=== PATIENT | male | born 2000 | race Caucasian/White ===

== ENCOUNTER 2025-04-24 11:31 | Observation (INO) ==
--- NOTE | 2025-04-24 11:40 | ED.PDOC ---
General [facility] ED Provider: Dr. GABRIEL PULLIAM MD Chief Complaint: Non-specific Complaint Stated Complaint: Patient is a 24-year-old male that reported to the emergency department for low blood pressure. Patient stated that he checked his blood pressure this morning with a home blood pressure cuff and it showed 90/60. Patient stated that he came to the emergency department due to the low blood pressure. In the emergency department patient's blood pressure was 114/78. Patient denied any current symptoms. Patient denied taking any medications this morning. Patient stated that he had been on blood pressure medicines previously but they were discontinued as they lowered the patient's blood pressure. Patient stated that he was on fluoxetine and buspirone for anxiety which his last doses were last night. Patient's heart rate was slightly elevated at 102 bpm. Patient's GCS was 15. Time Seen by Provider: 04/24/25 11:33 Mode of Arrival: Walk-In Information Source: Patient Exam Limitations: No limitations Primary Care Provider: LEE VILLARREAL Nursing and Triage Documentation Reviewed and Agree: Yes Opioid Naive vs. Tolerant What is Opioid Naive?: *Opioid Naive implies the patient is not already taking opioids or not chronically receiving opioids on a daily basis. *PRN dosing is not "usually" associated with tolerance. *Patients are at higher risk of over-sedation and aspiration. What is Opioid Tolerant?: *Opioid Tolerance implies less than the expected response to an opioid. *Acquired tolerance is defined by the patient taking 60mg of oral morphine daily (or equianalgesic dose of another opioid) for 1 week or more. *Often associated with chronic pain. *May take more than usual dose to achieve desired pain control. Review of Systems Review Of Systems Constitutional: Reports No symptoms Eyes: Reports No symptoms Ears, Nose, Mouth, Throat: Reports No symptoms Respiratory: Reports No symptoms Cardiac: Reports No symptoms GI: Reports No symptoms : Reports No symptoms Musculoskeletal: Reports No symptoms Skin: Reports No symptoms Neurological: Reports No symptoms Endocrine: Reports No symptoms Hematologic/Lymphatic: Reports No symptoms All Other Systems: Reviewed and Negative Physical Exam Physical Exam Appearance: Reports Well-nourished and Obese Ill-appearing: None Pain Distress: None Eyes: Reports [place], EOMI and Conjunctiva clear ENT: Reports Nose normal and Oropharynx normal Neck: Supple Respiratory: Reports Airway patent, Breath sounds clear, Breath sounds equal and Respirations nonlabored Cardiovascular: Reports RRR, Pulses normal, No rub and No murmur GI/: Reports Soft, Nontender and Bowel sounds normal Musculoskeletal: Reports Normal strength, ROM intact, No edema and No calf tenderness Skin: Reports Warm, Dry and Normal color Neurological: Reports Sensation intact, Motor intact, Alert and Oriented Psychiatric: Reports Affect appropriate and Mood appropriate Physician Progress Note Physician Progress Note: Patient is a 24-year-old male that reported to the emergency department for low blood pressure. Patient stated that he checked his blood pressure this morning with a home blood pressure cuff and it showed 90/60. Patient stated that he came to the emergency department due to the low blood pressure. In the emergency department patient's blood pressure was 114/78. Patient denied any current symptoms. Patient denied taking any medications this morning. Patient stated that he had been on blood pressure medicines previously but they were discontinued as they lowered the patient's blood pressure. Patient stated that he was on fluoxetine and buspirone for anxiety which his last doses were last night. Patient's heart rate was slightly elevated at 102 bpm. Patient's GCS was 15. - Will order an EKG, troponin, and baseline labs. - Will order orthostatic vital signs. - EKG shows normal sinus rhythm with normal axis. Ventricular rate is 95 bpm. No acute STEMI noted. EKG interpreted by ER physician. - Patient has an KELL on CMP. Will give IV fluids. - Spoke to hospitalist at 1245 who agreed to accept the patient at [facility] for KELL. Patient's vital signs are stable at time of observational admission. Course Course 04/24/25 11:45 04/24/25 11:45 Orders, Labs, Meds: Lab Review 04/24/25 11:45 WBC 7.50 RBC 3.63 L Hgb 11.1 L Hct 34.5 L MCV 95.0 H MCH 30.6 MCHC 32.2 RDW Coeff of Jamel 12.2 Plt Count 283 Immature Gran % (Auto) 0.3 Neut % (Auto) 53.0 Lymph % (Auto) 36.0 [place] % (Auto) 6.9 Eos % (Auto) 3.3 Baso % (Auto) 0.5 Neut # (Auto) 4.0 Lymph # (Auto) 2.7 [place] # (Auto) 0.5 Eos # (Auto) 0.3 Baso # (Auto) 0.0 Immature Gran # (Auto) 0.0 Sodium 139.5 Potassium 4.49 Chloride 103.7 Carbon Dioxide 24.1 Anion Gap 16.19 BUN 42.5 H Creatinine 1.39 H Estimated GFR (MDRD) 63.00 BUN/Creatinine Ratio 30.57 Glucose 124.6 H Calcium 9.48 Total Bilirubin 0.46 AST 46.4 ALT 34.5 Alkaline Phosphatase 45.9 Troponin I < 0.012 Total Protein 7.46 Albumin 4.48 Globulin 2.98 Albumin/Globulin Ratio 1.50 Orders Category Date Time Status EKG-(ED & IP/OBS ONLY) Stat CARDIO 04/24/25 11:34 Ordered Orthostatic Vital Signs [ED ORTHOSTATIC VITAL SIGNS] . EMERGENCY 04/24/25 11:50 Active ONCE CBC W/ AUTO DIFF Stat LAB 04/24/25 11:45 Completed CMP [COMPREHENSIVE METABOLIC PANEL] Stat LAB 04/24/25 11:45 Completed TROPONIN I Stat LAB 04/24/25 11:45 Completed Sodium Chloride 0.9% [Sodium Chloride] 1,000 ml Meds 04/24/25 12:35 Active IV BOLUS Medications Generic Name Dose Route Start Last Admin Trade Name Freq PRN Reason Stop Dose Admin Sodium Chloride 1,000 mls @ 1,000 mls/hr 04/24/25 12:35 Sodium Chloride IV 04/24/25 13:34 BOLUS ONE Vital Signs: Temp Pulse Resp BP Pulse Ox 04/24/25 12:22 110 H 100/57 L 04/24/25 12:21 98 100/62 04/24/25 12:21 93 99/55 L 04/24/25 11:36 97.8 F 108 H 18 114/67 97 SEUN Risk Score SEUN Risk Score: Risk Score Odds of by 30D 0 0.1 (0.1-0.2) 1 0.3 (0.2-0.3) 2 0.4 (0.3-0.5) 3 0.7 (0.6-0.9) 4 1.2 (1.0-1.5) 5 2.2 (1.9-2.6) 6 3.0 (2.5-3.6) 7 4.8 (3.8-6.1) Discharge Plan Discharge Patient Disposition: PLACED OBSERVATION Discharge Problem: KELL (acute kidney injury) Did you review [place] HEAD MACHINIST for ALL controlled substances?: Not Applicable ED Provider: GABRIEL PULLIAM Condition: Stable
[2025-04-24 11:58] LABS: IMMATURE GRANULOCYTE # (AUTO) 0.0 (0.0-1.0); IMMATURE GRANULOCYTE % (AUTO) 0.3 % (0.0-5.0); RDW COEFFICIENT OF VARIATION 12.2 % (11.6-14.8)
[2025-04-24 12:11] LABS: CREATININE 1.39 mg/dL (0.60-1.10)
[2025-04-24] MEDS ORDERED: TYLENOL PO PRN (13:04)
[2025-04-24] MEDS ORDERED: ZOFRAN SDV IVP PRN (13:04)
--- NOTE | 2025-04-24 13:04 | PCM ---
Date of Service Date Seen by Provider: 04/24/25 Time Seen by Provider: 13:00 Admit Day/Time Admission Date: 04/24/25 Admission Time: 12:52 Reason for Admission Chief Complaint: KELL Hospital Provider Hospital Provider: Nely Mccray [facility]-C, [facility] Primary Care Physician Primary Care Physician: LEE VILLARREAL History of Present Illness History of Present Illness: Patient is a 24-year-old male with past medical history of diabetes and hypertension who presented to the ER dizziness. He states that he was admitted to [facility] this past week with a kidney injury and was discharged yester day. He states that his medications were changed. He checked his blood pressure at home and it was low. Upon arrival to the ER his systolic was in the 90s. He was noted to have a creatinine of 1.3 with the last 1 in our system being 0.9. He was given fluids. Will admit to [facility]. After discussing with the patient, his grandma, and reviewing records from [facility] it was found that his creatinine was 8.6 on Monday of this week. He had presented to get a stress test but when they placed the IV he felt like he was going to pass out and was noted to be hypotensive so he was directed to the ER. He was admitted from 04/21-04/23. KELL was felt to be due to his Rybelsus. He was given fluids and creatinine improved to 1.9 upon discharge. He also had a low magnesium of 1 point level of 1.6. Since he has had some dizziness, low blood pressure, and not quite to his entire baseline of creatinine patient still wishes to stay overnight for fluids. Case Discussed With Case Discussed With: Patient's case was discussed with the ER Physicians, Dr. Vega. [facility] Medical History (Updated 04/24/25 @ 18:24 by PIYUSH DIXON, CHRISTIAN) Anxiety F41.9 - Anxiety disorder, unspecified (ICD-10) Diabetes E11.9 - Type 2 diabetes mellitus without complications (ICD-10) Family History (Updated 04/24/25 @ 18:23 by PIYUSH DIXON, CHRISTIAN) Mother Mini stroke Hypertension MATERNAL GRANDMOTHER Hypertension Diabetes MATERNAL GRANDMOTHER AMI (acute myocardial infarction) SISTER Scoliosis Allergies Allergies Allergy/AdvReac Type Severity Reaction Status Date / Time No Known Allergies Allergy Verified 04/24/25 11:36 Current Medications Home Medications Acetaminophen (Acetaminophen 325 Mg Tablet) 650 mg PO Q4H PRN PRN Reason: Mild Pain Buspirone HCl (Buspirone Hcl 10 Mg Tablet) 10 mg PO 2XD RUBEN Empagliflozin (Empagliflozin 10 Mg Tablet) [address] [facility] Fluoxetine HCl (Fluoxetine Hcl 20 Mg Capsule) [address] [facility] Lactated Ringer's (Lactated Ringers) 1,000 mls @ 125 mls/hr IV .Q8H RUBEN Last Admin: 04/24/25 16:05 Dose: 125 mls/hr Ondansetron HCl (Ondansetron Hcl/Pf 4 Mg/2 Ml Sdv) 4 mg IVP Q6H PRN PRN Reason: Nausea / Vomiting lisinopril 20 mg tablet 20 mg PO QPM 10/30/24 [History Confirmed 04/24/25] lisinopril 20 mg-hydrochlorothiazide 12.5 mg tablet 1 tab PO DAILY 10/30/24 [History Confirmed 04/24/25] metoprolol tartrate 25 mg tablet 25 mg PO BID PRN fast heart rate #30 tabs 10/30/24 [Rx Confirmed 04/24/25] semaglutide 14 mg tablet (Rybelsus) 14 mg PO QAM 10/30/24 [History Confirmed 04/24/25] sertraline 50 mg tablet 50 mg PO DAILY 03/18/25 [History Confirmed 03/18/25] buspirone 10 mg tablet 10 mg PO 2XD 04/24/25 [History Confirmed 04/24/25] empagliflozin 10 mg tablet (Jardiance) 10 mg PO DAILY 04/24/25 [History Confirmed 04/24/25] fluoxetine 20 mg capsule 20 mg PO QAM 04/24/25 [History Confirmed 04/24/25] Opioid Naive vs. Tolerant Does Patient Take Opioids?: No Is Patient Opioid Naive?: Yes What is Opioid Naive?: *Opioid Naive implies the patient is not already taking opioids or not chronically receiving opioids on a daily basis. *PRN dosing is not "usually" associated with tolerance. *Patients are at higher risk of over-sedation and aspiration. Is Patient Opioid Tolerant?: No What is Opioid Tolerant?: *Opioid Tolerance implies less than the expected response to an opioid. *Acquired tolerance is defined by the patient taking 60mg of oral morphine daily (or equianalgesic dose of another opioid) for 1 week or more. *Often associated with chronic pain. *May take more than usual dose to achieve desired pain control. Review of Systems Constitutional: Denies Fever Head: Reports Normocephalic and Atraumatic Cardiovascular: Denies Chest pain or Edema Respiratory: Denies Cough or Shortness of air Gastrointestinal: Denies Nausea, Vomiting, Diarrhea, Abdominal pain or Melena Genitourinary: Denies Dysuria or Hematuria Neurological: Reports Dizziness Physical examination Most Recent Vital Signs: Most Recent Vital Signs Temperature 97.8 F 04/24/25 11:36 Temperature Source Temporal Artery Scan 04/24/25 11:36 Pulse Rate 110 H 04/24/25 12:22 Respiratory Rate 18 04/24/25 11:36 Blood Pressure 100/57 L 04/24/25 12:22 Blood Pressure Location Left Arm 04/24/25 12:22 Blood Pressure Position Standing 04/24/25 12:22 O2 Sat by Pulse Oximetry 97 04/24/25 11:36 Height 5 ft 9 in 04/24/25 11:36 Weight 147.7 kg 04/24/25 11:36 Appearance: Positive No Apparent Distress and Alert and Oriented x3 Skin: Positive [place], Warm, Good Turgor and Good Color HEENT: Positive Normocephalic and Atraumatic Neck: Positive Supple and Midline Trachea Chest/Lungs: Positive Clear to Auscultation Bilaterally; Negative Rales, Rhonci or Wheezes Heart: Positive RRR GI/: Positive Soft, Nontender, Bowel Sounds Normal and No Distention Neurological: Positive Cranial Nerves Intact, Alert, Oriented and Muscle Strength 5/5 in Upper and Lower Extremities Bilaterally Psychiatric: Positive Oriented x4, Appropriate Mood, Appropriate Affect and Intact Memory Labs This Visit Labs This Visit: Labs This Visit 04/24/25 11:45 WBC 7.50 RBC 3.63 L Hgb 11.1 L Hct 34.5 L MCV 95.0 H MCH 30.6 MCHC 32.2 RDW Coeff of Jamel 12.2 Plt Count 283 Immature Gran % (Auto) 0.3 Neut % (Auto) 53.0 Lymph % (Auto) 36.0 [place] % (Auto) 6.9 Eos % (Auto) 3.3 Baso % (Auto) 0.5 Neut # (Auto) 4.0 Lymph # (Auto) 2.7 [place] # (Auto) 0.5 Eos # (Auto) 0.3 Baso # (Auto) 0.0 Immature Gran # (Auto) 0.0 Sodium 139.5 Potassium 4.49 Chloride 103.7 Carbon Dioxide 24.1 Anion Gap 16.19 BUN 42.5 H Creatinine 1.39 H Estimated GFR (MDRD) 63.00 BUN/Creatinine Ratio 30.57 Glucose 124.6 H Calcium 9.48 Total Bilirubin 0.46 AST 46.4 ALT 34.5 Alkaline Phosphatase 45.9 Troponin I < 0.012 Total Protein 7.46 Albumin 4.48 Globulin 2.98 Albumin/Globulin Ratio 1.50 Review Statement Review Statement: I have independently reviewed and interpreted the labs/EKGs/imaging that were ordered by the ER provider. I have reviewed all outside records that are available currently in our EMR including imaging/notes/labs from previous visits. Plan Plan: 1. KELL, stage 1 - Actually improved compared to labs earlier this week at [facility], but not quite to baseline. LR at 125 ml/hr. 2. Dizziness - Likely due to underlying dehydration. Orthostats negative. Cont fluids 3. DMT2 - A1c was 5.4. His diabetic medications were changed due to his significant kell and controlled a1c. 4. Hypertension - Cont home meds 5. Recent hypomagnesemia - Patient reports his mag was low at [facility], will add mag level here. DVT Prophylaxis: Ambulation Time Spent: Greater than 80 minutes spent with patient, 50% of the time spent with this patient was devoted to counseling and coordination of care. Advanced Care Plannin minutes spent discussing advance care planning. Admit to: Obs Discussed Plan of Care with Dr. Gladys Ramon. Medications Medication Orders: Medications Ordered Category Date Time Status Sodium Chloride 0.9% [Sodium Chloride] 1,000 ml Meds 04/24/25 12:35 Active IV BOLUS
[2025-04-24] MEDS: SODIUM CHLORIDE 1,000 ML IV ONE (13:12)
[2025-04-24] MEDS: LACTATED RINGERS 1,000 ML IV SCH (16:05)
[2025-04-24 16:50] VITALS: BMI 47.3
[2025-04-24] MEDS: MAGNESIUM SULF 2 G/50 ML BAG 2 GM/50 ML PIGGYBACK IV ONE ×2 (17:16→20:42)
[2025-04-24] MEDS: BUSPAR PO SCH (20:42)
[2025-04-25 05:53] VITALS: BP 121/74; PULSE 79; RESP 18; TEMP 97.7
[2025-04-25 07:25] LABS: IMMATURE GRANULOCYTE # (AUTO) 0.0 (0.0-1.0); IMMATURE GRANULOCYTE % (AUTO) 0.3 % (0.0-5.0); RDW COEFFICIENT OF VARIATION 12.2 % (11.6-14.8)
[2025-04-25 07:44] LABS: CREATININE 1.12 mg/dL (0.60-1.10)
--- NOTE | 2025-04-25 09:02 | DCSUM ---
Admission Date Admission Date: 04/24/25 Discharge Date Discharge Date: 04/25/25 Admission Diagnosis Admission Diagnosis: 1. KELL, stage 1 2. Dizziness Discharge Diagnosis Discharge Diagnosis: 1. KELL, stage 1 - resolved 2. Dizziness - resolved 3. DMT2 4. Hypertension 5. Hypomagnesemia, resolved Hospital Provider Hospital Provider: SOFIE SCHROEDER PA-C, [facility] Primary Care Physician Primary Care Physician: LEE VILLARREAL Summary of History and Physical Summary of History and Physical: Patient is a 24-year-old male with past medical history of diabetes and hypertension who presented to the ER dizziness. He states that he was admitted to [facility] this past week with a kidney injury and was discharged yesterday. He states that his medications were changed. He checked his blood pressure at home and it was low. Upon arrival to the ER his systolic was in the 90s. He was noted to have a creatinine of 1.3 with the last 1 in our system being 0.9. He was given fluids. Will admit to [facility]. After discussing with the patient, his grandma, and reviewing records from [facility] it was found that his creatinine was 8.6 on Monday of this week. He had presented to get a stress test but when they placed the IV he felt like he was going to pass out and was noted to be hypotensive so he was directed to the ER. He was admitted from 04/21-04/23. KELL was felt to be due to his Rybelsus. He was given fluids and creatinine improved to 1.9 upon discharge. He also had a low magnesium of 1 point level of 1.6. Since he has had some dizziness, low blood pressure, and not quite to his entire baseline of creatinine patient still wishes to stay overnight for fluids. Hospital Course Subjective: Patient treated with fluids. Cr improved to 1.1. BUN improved to 24 from 42. Patient has been ambulatory without difficulty, no dizziness. Patient's magnesium was 1.2. Was given 4 mg of mag, improved to 2 today. BP has been normal. Discharge to home, f/u with pcp next week. Patient agrees to plan of care. Appearance: Pleasant, No Apparent Distress and Alert HEENT: MMM CVS: Other (RRR) Abdomen: Soft, Non-Tender and No Distention Respiratory: No Accessory Muscle Use Extremities: No Edema Vital Signs: Most Recent Vital Signs Temperature 97.7 F 04/25/25 05:52 Temperature Source Temporal Artery Scan 04/25/25 05:52 Temperature Source Temporal Artery Scan 04/24/25 11:36 Pulse Rate 79 04/25/25 05:52 Respiratory Rate 18 04/25/25 05:52 Blood Pressure 121/74 04/25/25 05:52 Blood Pressure Mean 89 04/25/25 05:52 Blood Pressure Right Arm 118/42 04/24/25 15:53 Blood Pressure Location Left Arm 04/25/25 05:52 Blood Pressure Position Supine 04/25/25 05:52 O2 Sat by Pulse Oximetry 97 04/25/25 05:52 Oxygen Delivery Method Room Air 04/25/25 08:00 Height 5 ft 9 in 04/24/25 15:53 Weight 145.4 kg 04/24/25 15:53 Telemetry Type Remote Telemetry 04/25/25 01:00 Telemetry Monitoring Continues 04/25/25 01:00 Telemetry Heart Rate 81 04/25/25 01:00 EKG UT Interval 0.18 04/25/25 01:00 EKG QRS Interval 0.08 04/25/25 01:00 Telemetry Strip Reading SR 04/25/25 01:00 Lab Results Last 24 Hours: 04/25/25 04/24/25 07:18 11:45 WBC 6.30 7.50 RBC 3.74 L 3.63 L Hgb 11.3 L 11.1 L Hct 36.7 L 34.5 L MCV 98.1 H 95.0 H MCH 30.2 30.6 MCHC 30.8 L 32.2 RDW Coeff of Jaeml 12.2 12.2 Plt Count 241 283 Immature Gran % (Auto) 0.3 0.3 Neut % (Auto) 44.5 53.0 Lymph % (Auto) 44.3 36.0 [place] % (Auto) 6.8 6.9 Eos % (Auto) 3.5 3.3 Baso % (Auto) 0.6 0.5 Neut # (Auto) 2.8 4.0 Lymph # (Auto) 2.8 2.7 [place] # (Auto) 0.4 0.5 Eos # (Auto) 0.2 0.3 Baso # (Auto) 0.0 0.0 Immature Gran # (Auto) 0.0 0.0 Sodium 142.7 139.5 Potassium 4.45 4.49 Chloride 106.8 103.7 Carbon Dioxide 26.7 24.1 Anion Gap 13.65 16.19 BUN 24.4 H 42.5 H Creatinine 1.12 H 1.39 H Estimated GFR (MDRD) 81.00 63.00 BUN/Creatinine Ratio 21.78 30.57 Glucose 83.7 124.6 H Calcium 9.36 9.48 Magnesium 2.07 1.21 L Total Bilirubin 0.40 0.46 AST 44.0 46.4 ALT 38.9 34.5 Alkaline Phosphatase 47.7 45.9 Troponin I < 0.012 Total Protein 7.09 7.46 Albumin 4.22 4.48 Globulin 2.87 2.98 Albumin/Globulin Ratio 1.47 1.50 Discharge Instructions Discharge Planning: Discharge Planning > [address] Gladys Ramon. Discharge Medications: Medications at Discharge (Home Meds & RX) sertraline 50 mg tablet 50 mg PO DAILY 03/18/25 buspirone 10 mg tablet 10 mg PO 2XD 04/24/25 empagliflozin 10 mg tablet (Jardiance) 10 mg PO DAILY 04/24/25 fluoxetine 20 mg capsule 20 mg PO QAM 04/24/25 Discharge Plan Discharge Discharge Orders: Discharge Patient (ONCE); Ordered 04/25/25 Ordered By: SOFIE SCHROEDER Activity Restrictions/Additional Instructions: DISCHARGE TO HOME DX: MILD DEHYDRATION CONTINUE TO PUSH FLUIDS FOLLOW UP WITH PRIMARY CARE PROVIDER NEXT WEEK RETURN WITH WORSENING SYMPTOMS NO MEDICATION CHANGES Instructions: Dehydration (DC), Acute Kidney Injury (DC), How to Take a Blood Pressure Reading (ED) Care Plan Goals: Problem: Fluid Volume Deficit Goal: Maintain fluid and electrolyte balance Instructions: Monitor and maintain hydration status Follow fluid and dietary restrictions Patient Disposition: HOME SELF-CARE Prescriptions: Continued sertraline 50 mg tablet 50 mg PO DAILY Jardiance 10 mg tablet 10 mg PO DAILY buspirone 10 mg tablet 10 mg PO 2XD fluoxetine 20 mg capsule 20 mg PO QAM Discontinued Rybelsus 14 mg tablet 14 mg PO QAM lisinopril-hydrochlorothiazide 20-12.5 mg tablet 1 tab PO DAILY lisinopril 20 mg tablet 20 mg PO QPM metoprolol tartrate 25 mg tablet 25 mg PO BID PRN (Reason: fast heart rate) Qty: 30 0RF Patient Comments: Pt states he has never started this, he was too afraid as of 02/13/2025 Rx Instructions: Take as needed for HR>100 bpm, BP>100/60 mmHg Did you review [place] SEPTIC TANK SERVICER for ALL controlled substances?: Not Applicable Discussed opioids are addictive and Narcan is available by prescription or from pharmacy.: No Condition: Stable Referrals: LEE VILLARREAL [Primary Care Provider, NURSE PRACTITIONER] - 05/02/25 11:15 am
[2025-04-25] MEDS: JARDIANCE PO SCH (09:10)
[2025-04-25] MEDS: PROZAC PO SCH (09:12)
== END 2025-04-25 11:22 | disposition home or self-care (01) ==
LOC: MEDSURG B 11:31 → ED 11:31 → MEDSURG B 15:59
PROVIDERS: ADMIT Hospitalist; ATTEND Physician Assistant